=== PATIENT | female | born 1975 | race Caucasian/White ===

== ENCOUNTER 2020-02-23 23:24 | Emergency (ER) | payer SELFPAY ==
--- NOTE | 2020-02-23 23:32 | ED_ITS ---
Entered by Julisa Sanchez, acting as scribe for HPI - Headache General: Chief Complaint: Headache Stated Complaint: headache/dizzy/n Time Seen by Provider: 02/23/20 23:30 Source: patient Mode of arrival: ambulatory Limitations: no limitations History of Present Illness: HPI Narrative: 44 yo f came to the er pov for headache, dizzy and nausea. Pt said that it started in her right eye with some blurring. Pt said that 2 years ago she thought that she was having a stroke she was having the same symptoms as she is now but she is not having any drooping like she did 2 years ago. They told her that it was a migraine that was causing those symptoms. She is rating her pain at a 12/10 right now. MD elicited complaint: headache Onset (ago): day(s) (today) Onset description: suddenly Location: temporal and occipital Severity: moderate Pain scale (0-10): 12 Quality & Timing: throbbing and sharp Exacerbating factors: light Relieving factors: dark room Context: occurred at rest Associated symptoms: Reports nausea and other (nausea and dizziness ); Deny chest pain, fever(s) or rash Review of Systems General: Reports: other (negative unless marked) Const: Denies: fever, chills, body aches or change in appetite Eyes: Denies: blurry vision or eye discomfort ENMT: Denies: throat pain or dental pain Card: Denies: chest pain Resp: Denies: shortness of breath GI: Reports: nausea : Denies: painful urination Musc: Denies: neck pain or back pain Skin/Breast: Denies: rash Neuro: Reports: headache (migraine) Psych: Denies: depression Fidel/Lymph: Denies: easy bruising All/Imm: Denies: hives PFSH ED PFSH: Social History Smoking and tobacco status: never smoked Physical Exam Const: COMMON NORMALS: no apparent distress, oriented x3 and healthy appearing HENMT: COMMON NORMALS: normocephalic and head/scalp atraumatic HEAD & SCALP: normocephalic and atraumatic Eye: COMMON NORMALS: PERRL and EOMs intact bilaterally PUPIL: Yes PERRL Neck/C-Spine: COMMON NORMALS: full ROM and supple Chest: COMMONS NORMALS: inspection of chest normal and palpation of chest normal Resp: COMMON NORMALS: normal respiratory effort, no retractions, no use of accessory muscles and clear to auscultation bilaterally AUSCULTATION: clear to auscultation bilaterally Cardio: COMMON NORMALS: regular rate, regular rhythm and no murmurs RATE: regular rate RHYTHM: regular rhythm GI: COMMON NORMALS: normal to inspection, nondistended, normoactive bowel sounds, soft to palpation, non-tender and no masses PALPATION: Yes soft Extremity: COMMON NORMALS: normal to inspection and full ROM Neuro: COMMON NORMALS: oriented x3, moves all extremities and no focal motor deficits Psych: COMMON NORMALS: mental status grossly normal, thought process normal and cooperative THOUGHT PROCESS: normal thought process Skin: COMMON NORMALS: no rashes or lesions noted and no wounds GENERAL SKIN EXAM: no rashes or lesions noted Course Vital Signs: Vital signs: Vital Signs Pulse Rate 85 02/24/20 00:45 Respiratory Rate 16 02/24/20 00:45 Blood Pressure 106/85 02/24/20 00:45 Pulse Oximetry 96 02/24/20 00:45 MDM - Headache MDM Narrative: Medical decision making narrative: Larissa presents with a headache consistent with migraine headache. It feels like her previous headaches she has no signs of stroke or subarachnoid hemorrhage. Patient's headache is resolved after Reglan along with her other symptoms. Patient is stable for discharge and is to follow-up with primary care doctor in 3 to 5 days return if worsening. Discharge Plan Discharge Patient Disposition: Home, Self-Care Clinical Impression: Headache Qualifiers: Headache type: unspecified Headache chronicity pattern: acute headache Intractability: not intractable Qualified Code(s): R51 - Headache Condition: Stable Prescriptions: No Action No Known Home Medications RF: 0 Discharge Orders: Discharge Order (Routine); Ordered 02/24/20 Ordered By: Rosio Oscar Referrals: Brenden Barbosa FNP [Primary Care Provider] - Discharge Diet: Advance as tolerated Discharge Activity: Resume usual activity Patient Instructions: Acute Headache (ED) Coding Level of Care Code ED Childbirth And Infant Care Teacher for Chg Fwd The documentation recorded by the Daniel rice Stephanie Lyn, accurately reflects the service I personally performed and the decisions made by Dayne melara Korby, MD Feb 23, 2020 23:24
[2020-02-23 23:40] VITALS: BP 191/115; PULSE 88; RESP 18; O2SAT 97; BMI 36.0
[2020-02-24] MEDS: diphenhydrAMINE 50 mg/mL SDV 1mL IVP (00:30)
--- NOTE | 2020-02-24 00:39 | PC.NURSE ---
Patient states she has a history of migraines, patient states she was feeling nauseated, feeling hot, and her right eye was blurry. Patient states she is hurting on the left side of her face and head.
[2020-02-24] MEDS: ketorolac 30 mg/mL INJ 15 MG IVP (00:40)
[2020-02-24 00:45] VITALS: BP 106/85; PULSE 85; RESP 16; O2SAT 96
[2020-02-24] MEDS: metoclopramide 5 mg/mL SDV 2 mL 10 MG IVP (00:45)
[2020-02-24 01:19] VITALS: BP 125/64; PULSE 83; RESP 15; O2SAT 97
[2020-02-24 01:27] VITALS: BP 129/92; PULSE 73; RESP 16; O2SAT 96
== END 2020-02-24 01:29 | disposition home or self-care (01) ==
PROVIDERS: Emergency Provider Emergency Medicine; PCP Nurse Practitioner Family
DX: R51 Headache (principal)
CPT/HCPCS: 12345; 96374; 96375; 99282; 99283; J1200; J1885; J2765

== ENCOUNTER 2021-02-15 21:20 | Emergency (ER) | payer SELFPAY ==
[2021-02-15 21:23] VITALS: BP 121/76; PULSE 91; RESP 18; TEMP 36.5; O2SAT 97; BMI 36.0
--- NOTE | 2021-02-15 22:07 | W.ED.BACK ---
HPI - Back Pain/Injury General: Chief Complaint: Back Pain/Injury Stated Complaint: back pain, numbness left leg Time Seen by Provider: 02/15/21 21:38 History of Present Illness: HPI Narrative: Patient is a 45-year-old female comes to the ED with lower back pain and pain shooting down into left leg. Patient says this is been going on for approximately a week now and states that it got worse in the last couple days because she had been watching her grandkids. Patient says she has a history of lower back pain with with pain rating down into left leg. She rates her current pain an 8 out of 10. She describes it as sharp burning sensation down her leg. Denies any bladder or bowel incontinence or pelvic anesthesia. Associated symptoms: Deny abdominal pain, chills, dysuria, fatigue, fever(s), hematuria, nausea or vomiting Review of Systems Const: Denies: fever(s), chills or fatigue Eyes: Denies: change in vision or eye discomfort ENMT: Denies: throat pain, odynophagia, nasal discharge or nasal congestion Card: Denies: chest pain, palpitations, edema, swelling of feet/ankles, dyspnea on exertion or orthopnea Resp: Denies: dyspnea, productive cough or non-productive cough GI: Denies: abdominal pain, nausea, vomiting, diarrhea, constipation or hematochezia : Denies: flank pain, dysuria or hematuria Musc: Reports: back pain; Denies: neck pain or extremity swelling Skin/Breast: Denies: rash or new lesions Neuro: Denies: headache(s), numbness in extremities or weakness in extremities PFS ED PFSH: Social History Smoking and tobacco status: never smoked Physical Exam Const: COMMON NORMALS: no acute distress, patient oriented x3 and alert GENERAL APPEARANCE: cooperative and comfortable NUTRITIONAL APPEARANCE: overweight HENMT: COMMON NORMALS: normocephalic HEAD & SCALP: normocephalic MOUTH: Normal oral and palatal mucosa present THROAT: posterior oropharynx normal and uvula midline Neck/C-Spine: COMMON NORMALS: supple GENERAL: Yes normal visual inspection Resp: COMMON NORMALS: normal respiratory effort, No retractions, No use of accessory muscles and clear to auscultation bilaterally AUSCULTATION: clear to auscultation bilaterally Cardio: COMMON NORMALS: regular rate, regular rhythm, S1 normal heart sound present, S2 normal heart sound present, No gallops present (Cardio), No clicks present (Cardio), No murmurs present (Cardio) and Peripheral pulses 2+ throughout RATE: regular rate RHYTHM: regular rhythm HEART SOUNDS: S1 normal heart sound present and S2 normal heart sound present PERIPHERAL PULSES: Peripheral pulses 2+ throughout GI: COMMON NORMALS: Normal to inspection, nondistended, normoactive bowel sounds present, Soft to palpation, non-tender and no masses PALPATION: Yes Soft to palpation : COMMON NORMALS: Yes no CVA tenderness BLADDER/KIDNEY EXAM: Yes no CVA tenderness Back/Pelvis: COMMON NORMALS: no CVA tenderness LUMBAR SPINE/LOWER BACK: Yes pain with ROM, Yes paraspinal muscle tenderness Lumbar paraspinal muscle tenderness: left and Yes straight leg raise positive left Extremity: COMMON NORMALS: normal to inspection Neuro: COMMON NORMALS: patient oriented x3 and moves all extremities SENSORIUM/ORIENTATION: Yes alert Skin: GENERAL SKIN EXAM: dry skin Course Vital Signs: Vital signs: Vital Signs Temperature 97.7 F 02/15/21 21:23 Pulse Rate 91 02/15/21 21:23 Respiratory Rate 18 02/15/21 22:40 Blood Pressure 121/76 02/15/21 21:23 Pulse Oximetry 99 02/15/21 22:40 MDM - Back Pain/Injury MDM Narrative: Medical decision making narrative: Patient is a 45-year-old female comes to the ED with lower back pain that radiates down to the left leg. Patient has a history of similar low back pain. Denies any acute injury or trauma. Denies cauda equina symptoms. Patient was given a dose of Dilaudid while here in the ED to help with pain and Solu-Medrol. She was then diagnosed with lumbar radiculopathy and discharged home with a prescription for Medrol Dosepak and methocarbamol. Return to ED precautions given. Follow-up with PCP in 7 to 10 days for reevaluation. Patient understood agree with plan. Discharge Plan Discharge Patient Disposition: Home Clinical Impression: Lumbar radiculopathy Condition: Stable Prescriptions: New Medrol (Tulio) 4 mg tablets,dose pack See Rx Instructions .ROUTE .COMPLEX Qty: 21 RF: 0 methocarbamol 750 mg tablet 750 mg PO Q8H Qty: 20 RF: 0 No Action No Known Home Medications RF: 0 Discharge Orders: Discharge ED (Routine); Ordered 02/15/21 Ordered By: Izaiah Medel Referrals: Brenden Barbosa FNP [Primary Care Provider] - Discharge Diet: Regular Discharge Activity: Increase activity as tolerated Patient Instructions: Lumbar Radiculopathy (ED) Activity Restrictions/Additional Instructions: Follow-up with medical provider as directed in 7-10 days. Take medications as prescribed. Apply cold pack on lower back and stretch lower back daily. Methocarbamol is a muscle relaxer and can cause some drowsiness so use at night before bed. Return to the ER or your medical provider if condition worsens. Please read and understand discharge instructions. If any questions, please ask. Coding Level of Care Code ED Merchandise Adjustment Clerk for Saydag Fwd Exam Comprehensive
[2021-02-15 22:33] VITALS: RESP 18; O2SAT 99
[2021-02-15 22:40] VITALS: RESP 18; O2SAT 99
== END 2021-02-15 22:41 | disposition home or self-care (01) ==
PROVIDERS: Emergency Provider Physician Assistant; PCP Nurse Practitioner Family
DX: M54.16 Radiculopathy, lumbar region (principal)
CPT/HCPCS: 96372; 99283; J2930

== ENCOUNTER 2021-02-26 13:50 | Emergency (ER) | payer SELFPAY ==
[2021-02-26 13:54] VITALS: BP 135/98; PULSE 73; RESP 18; TEMP 36.6; O2SAT 98; BMI 36.0
[2021-02-26 14:03] VITALS: BP 132/95; PULSE 84; RESP 18; O2SAT 98
--- NOTE | 2021-02-26 14:14 | ED_ITS ---
HPI - Back Pain/Injury General: Chief Complaint: Back Pain/Injury Stated Complaint: BACK PAIN Time Seen by Provider: 02/26/21 13:54 History of Present Illness: HPI Narrative: Patient is a 45-year-old female comes to the ED with lower back pain. Patient was seen here in the ED on February 15 for same complaint. Patient says she has low back pain that then radiates down into left leg. Patient states that the steroids that she took did help with her pain and symptoms. Denies any injury or trauma to cause acute pain. She says when she stopped taking the steroids her pain came back. Patient does not have a primary care physician and would like a referral to one. Associated symptoms: Deny abdominal pain, chills, dysuria, fatigue, fever(s), hematuria, nausea or vomiting Review of Systems Const: Denies: fever(s), chills or fatigue Eyes: Denies: change in vision or eye discomfort ENMT: Denies: throat pain, odynophagia, nasal discharge or nasal congestion Card: Denies: chest pain, palpitations, edema, swelling of feet/ankles, dyspnea on exertion or orthopnea Resp: Denies: dyspnea, productive cough or non-productive cough GI: Denies: abdominal pain, nausea, vomiting, diarrhea, constipation or hematochezia : Denies: flank pain, dysuria or hematuria Musc: Reports: back pain; Denies: neck pain or extremity swelling Skin/Breast: Denies: rash or new lesions Neuro: Denies: headache(s), numbness in extremities or weakness in extremities PFS ED PFSH: Social History Smoking and tobacco status: never smoked Physical Exam Const: COMMON NORMALS: no acute distress, patient oriented x3 and alert GENERAL APPEARANCE: cooperative and comfortable HENMT: COMMON NORMALS: normocephalic HEAD & SCALP: normocephalic MOUTH: Normal oral and palatal mucosa present THROAT: posterior oropharynx normal and uvula midline Neck/C-Spine: COMMON NORMALS: supple GENERAL: Yes normal visual inspection Resp: COMMON NORMALS: normal respiratory effort, No retractions, No use of acc essory muscles and clear to auscultation bilaterally AUSCULTATION: clear to auscultation bilaterally Cardio: COMMON NORMALS: regular rate, regular rhythm, S1 normal heart sound present, S2 normal heart sound present, No gallops present (Cardio), No clicks present (Cardio), No murmurs present (Cardio) and Peripheral pulses 2+ throughout RATE: regular rate RHYTHM: regular rhythm HEART SOUNDS: S1 normal heart sound present and S2 normal heart sound present PERIPHERAL PULSES: Peripheral pulses 2+ throughout GI: COMMON NORMALS: Normal to inspection, nondistended, normoactive bowel sounds present, Soft to palpation, non-tender and no masses PALPATION: Yes Soft to palpation : COMMON NORMALS: Yes no CVA tenderness BLADDER/KIDNEY EXAM: Yes no CVA tenderness Back/Pelvis: COMMON NORMALS: no CVA tenderness LUMBAR SPINE/LOWER BACK: Yes pain with ROM, Yes paraspinal muscle tenderness Lumbar paraspinal muscle tenderness: bilateral Bilateral lumbar paraspinal muscle tenderness: L4 and L5 and Yes straight leg raise positive left Extremity: COMMON NORMALS: normal to inspection Neuro: COMMON NORMALS: patient oriented x3 and moves all extremities SENSORIUM/ORIENTATION: Yes alert Skin: GENERAL SKIN EXAM: dry skin Course Vital Signs: Vital signs: Vital Signs Temperature 97.9 F 02/26/21 13:54 Pulse Rate 84 02/26/21 14:03 Respiratory Rate 16 02/26/21 14:31 Blood Pressure 132/95 02/26/21 14:03 Pulse Oximetry 98 02/26/21 14:03 MDM - Back Pain/Injury MDM Narrative: Medical decision making narrative: Patient is a 45-year-old female comes to the ED with lower back pain. she was seen here for same complaint on February 15. symptoms improved with steroid, but once steroid course was finished pain radiating down the left leg returned. pt said the methocarbamol didn't seem to work well. she denies any injury or trauma. pt was discharged with lumbar radiculopathy and sent home with a prescription fro cyclybenzaprine and medrol dose tulio. I also placed an order with case management for pt to get pcp referral to establish care. rest, ice and stretch lower back daily. return to ED precautions given. pt understood and agree with plan. Discharge Plan Discharge Patient Disposition: Home Clinical Impression: Lumbar radiculopathy Condition: Stable Prescriptions: New prednisone 20 mg tablet 20 mg PO TID 5 Days Qty: 15 RF: 0 cyclobenzaprine 5 mg tablet 5 mg PO TID PRN (Reason: muscle spasm) Qty: 30 RF: 0 No Action No Known Home Medications RF: 0 Medrol (Tulio) 4 mg tablets,dose pack See Rx Instructions .ROUTE .COMPLEX Qty: 21 RF: 0 methocarbamol 750 mg tablet 750 mg PO Q8H Qty: 20 RF: 0 Discharge Orders: Discharge ED (Routine); Ordered 02/26/21 Ordered By: Izaiah Medel Referrals: Brenden Barbosa FNP [Primary Care Provider] - Discharge Diet: Regular Discharge Activity: Increase activity as tolerated Patient Instructions: Lumbar Radiculopathy (ED) Activity Restrictions/Additional Instructions: Follow-up with medical provider as directed. Case management contacted External days set up appointment with PCP. Take medications as prescribed. Return to the ER or your medical provider if condition worsens. Please read and understand discharge instructions. If any questions, please ask. Coding Level of Care Code ED Toll Ticket Clerk for Nicole Fwd Exam Comprehensive
[2021-02-26 14:31] VITALS: RESP 16
[2021-02-26] MEDS: oxyCODONE-APAP 5-325 mg Tablet 1 TAB PO (14:31)
[2021-02-26] MEDS: dexamethasone 10 mg/mL INJ IM (14:34)
--- NOTE | 2021-03-01 13:24 | DCPLANNER ---
manager non profit had message to speak with patient about getting established with a primary care physician. manager non profit called phone number [phone], unable to speak with patient at this time, a voicemail was left for patient to return shoe caser phone call.
== END 2021-02-26 14:37 | disposition home or self-care (01) ==
LOC: ER 14:24
PROVIDERS: Emergency Provider Physician Assistant; PCP Nurse Practitioner Family
DX: M54.16 Radiculopathy, lumbar region (principal)
CPT/HCPCS: 96372; 99283; J1100

== ENCOUNTER 2021-04-18 16:57 | Emergency (ER) | payer SELFPAY ==
[2021-04-18 16:58] VITALS: BP 154/103; PULSE 96; RESP 18; TEMP 37.1; O2SAT 96; BMI 36.0
--- NOTE | 2021-04-18 17:09 | ED_ITS ---
HPI - Back Pain/Injury General: Chief Complaint: Back Pain/Injury Stated Complaint: BACK LEG PAIN Time Seen by Provider: 04/18/21 17:07 History of Present Illness: HPI Narrative: Patient is a 45-year-old female comes to the ED with back pain. Patient says she injured her lower back 3 months ago after picking up her grandchildren. She reports still having some pain radiating down into left leg. Her pain came back after she did some lifting around the house and moved some furniture. Patient said she would like to have a referral to a PCP. Denies any pelvic anesthesia, bladder or bowel incontinence or weakness to lower extremities. Associated symptoms: Deny abdominal pain, chills, dysuria, fatigue, fever(s), hematuria, nausea or vomiting Review of Systems Const: Denies: fever(s), chills or fatigue Eyes: Denies: change in vision or eye discomfort ENMT: Denies: throat pain, odynophagia, nasal discharge or nasal congestion Card: Denies: chest pain, palpitations, edema, swelling of feet/ankles, dyspnea on exertion or orthopnea Resp: Denies: dyspnea, productive cough or non-productive cough GI: Denies: abdominal pain, nausea, vomiting, diarrhea, constipation or hematochezia : Denies: flank pain, dysuria or hematuria Musc: Reports: back pain (pain radiating down left leg); Denies: neck pain or extremity swelling Skin/Breast: Denies: rash or new lesions Neuro: Denies: headache(s), numbness in extremities or weakness in extremities PFS ED PFSH: Social History Smoking and tobacco status: never smoked Physical Exam Const: COMMON NORMALS: no acute distress, patient oriented x3 and alert GENERAL APPEARANCE: cooperative and comfortable NUTRITIONAL APPEARANCE: overweight HENMT: COMMON NORMALS: normocephalic HEAD & SCALP: normocephalic MOUTH: Normal oral and palatal mucosa present THROAT: posterior oropharynx normal and uvula midline Eye: COMMON NORMALS: Equal, round and reactive pupils present PUPIL: Yes Equal, round and reactive pupils present Neck/C-Spine: COMMON NORMALS: supple GENERAL: Yes normal visual inspection Resp: COMMON NORMALS: normal respiratory effort, No retractions, No use of accessory muscles and clear to auscultation bilaterally AUSCULTATION: clear to auscultation bilaterally Cardio: COMMON NORMALS: regular rate, regular rhythm, S1 normal heart sound present, S2 normal heart sound present, No gallops present (Cardio), No clicks present (Cardio), No murmurs present (Cardio) and Peripheral pulses 2+ throughout RATE: regular rate RHYTHM: regular rhythm HEART SOUNDS: S1 normal heart sound present and S2 normal heart sound present PERIPHERAL PULSES: Peripheral pulses 2+ throughout GI: COMMON NORMALS: Normal to inspection, nondistended, normoactive bowel sounds present, Soft to palpation, non-tender and no masses INSPECTION: Yes central obesity PALPATION: Yes Soft to palpation : COMMON NORMALS: Yes no CVA tenderness BLADDER/KIDNEY EXAM: Yes no CVA tenderness Back/Pelvis: COMMON NORMALS: no CVA tenderness LUMBAR SPINE/LOWER BACK: No lumbar spinal tenderness, No paraspinal muscle tenderness and Yes straight leg raise positive left Extremity: COMMON NORMALS: normal to inspection Neuro: COMMON NORMALS: patient oriented x3 and moves all extremities SENSORIUM/ORIENTATION: Yes alert Skin: GENERAL SKIN EXAM: dry skin Course Vital Signs: Vital signs: Vital Signs Temperature 98.7 F 04/18/21 16:58 Pulse Rate 96 04/18/21 16:58 Respiratory Rate 18 04/18/21 16:58 Blood Pressure 154/103 04/18/21 16:58 Pulse Oximetry 96 04/18/21 16:58 MDM - Back Pain/Injury MDM Narrative: Medical decision making narrative: Patient is a 45-year-old lower back pain that radiates down into left leg. Patient has been dealing with this for the past 3 months. She reaggravated pain after trying to lift some furniture around the house. Denies any cauda equina symptoms. Straight leg raise positive for left lower extremity. Patient was wanting to get established with a primary care physician so I placed an order with case management to be referred to a PCP. Patient was given a dose of Toradol and Decadron while here in the ED. Patient diagnosed with sciatica and was discharged home with a Medrol Dosepak and Flexeril. I told patient that catalytic case operator be contacting her in the next several days set up appoint with the PCP. Return to ED precautions given. Patient understood agree with plan. Discharge Plan Discharge Patient Disposition: Home Clinical Impression: Sciatica Qualifiers: Laterality: left Qualified Code(s): M54.32 - Sciatica, left side Condition: Stable Prescriptions: New Medrol (Tulio) 4 mg tablets,dose pack See Rx Instructions .ROUTE .COMPLEX Qty: 21 RF: 0 cyclobenzaprine 10 mg tablet 10 mg PO BID PRN (Reason: muscle spasm) Qty: 20 RF: 0 No Action No Known Home Medications RF: 0 Discharge Orders: Discharge ED (Routine); Ordered 04/18/21 Ordered By: Izaiah Medel Discharge Diet: Regular Discharge Activity: Increase activity as tolerated Patient Instructions: Sciatica (ED) Activity Restrictions/Additional Instructions: Follow-up with medical provider as directed. Case management should be contacting you in the next several days to set up an appointment with a primary care physician. Take medications as prescribed. Cyclobenzaprine is a muscle relaxer and can cause some drowsiness so take at night before bed. Apply cold pack and/or heat on painful area and stretch lower back and legs daily. Return to the ER or your medical provider if condition worsens. Please read and understand discharge instructions. Thank you for choosing [facility] for your healthcare needs today. Please realize this is an emergency room and that we are providing you with a medical screening exam and this may not be complete and all inclusive of all the testing and or work up that you may need to determine your ailment or severity of your illness. It is very important that you follow up as instructed or that you return to the Emergency Department should you have concerns or if your condition changes or worsens in any way. Coding Level of Care Code ED [employer] Agent for Nicole Sood Exam Comprehensive
[2021-04-18] MEDS: dexamethasone 10 mg/mL INJ IM (17:58)
[2021-04-18] MEDS: ketorolac 60 mg/2 mL INJ IM (17:59)
--- NOTE | 2021-04-20 14:31 | DCPLANNER ---
manager consumer insights had message to speak with patient about getting established with a primary care physician. manager consumer insights spoke with patient, she stated that she did need help in getting established with a primary care physician. manager consumer insights called [facility], spoke with Cherelle, gave clinic patients information. A follow up appointment was scheduled for Saturday, April 24, 2021 at 10:[address] Shah. manager consumer insights called patient and gave patient the appointment information.
--- NOTE | 2021-05-17 15:33 | DCPLANNER ---
Patient had a follow up appointment scheduled for 04.24.[address] Shah for primary care - patient did not attend appointment.
== END 2021-04-18 18:14 | disposition home or self-care (01) ==
PROVIDERS: Emergency Provider Physician Assistant
DX: M54.32 Sciatica, left side (principal)
CPT/HCPCS: 96372; 99283; J1100; J1885

== ENCOUNTER 2021-06-01 17:01 | Emergency (ER) | payer SELFPAY ==
[2021-06-01 17:13] VITALS: BP 138/99; PULSE 74; RESP 18; TEMP 36.6; O2SAT 96; BMI 36.0
--- NOTE | 2021-06-01 17:25 | W.ED.EXTPRO ---
HPI - Extremity Problem General: Chief complaint: Extremity Injury, Upper Stated complaint: Left Thumb Cut Time Seen by Provider: 06/01/21 17:24 Source: patient Mode of arrival: ambulatory Limitations: no limitations History of Present Illness: HPI Narrative: Peeling potatoes patient slipped and cut thumb laterally with reid, no skin left for repair of wound. MD Complaint: extremity pain and extremity swelling Location: right Severity scale (1-10): 5 Review of Systems General: Reports: 10 or more systems reviewed and unremarkable except in HPI and below PFSH ED PFSH: Social History Smoking and tobacco status: never smoked Physical Exam Const: COMMON NORMALS: no acute distress, average body habitus, patient oriented x3, no limitations, healthy appearing, alert and well nourished HENMT: COMMON NORMALS: normocephalic and atraumatic HEAD & SCALP: normocephalic and atraumatic FACE & SINUS: normal facial exam Eye: COMMON NORMALS: Equal, round and reactive pupils present and EOMs intact bilaterally PUPIL: Yes Equal, round and reactive pupils present Neck/C-Spine: COMMON NORMALS: full ROM, no lymphadenopathy and no JVD Resp: COMMON NORMALS: normal respiratory effort, No retractions, No use of accessory muscles, clear to auscultation bilaterally and percussion normal EFFORT & INSPECTION: Yes able to speak in complete sentences AUSCULTATION: clear to auscultation bilaterally PERCUSSION: percussion normal Cardio: COMMON NORMALS: no JVD, regular rate, regular rhythm, S1 normal heart sound present and S2 normal heart sound present RATE: regular rate RHYTHM: regular rhythm HEART SOUNDS: S1 normal heart sound present and S2 normal heart sound present GI: COMMON NORMALS: Normal to inspection, nondistended, normoactive bowel sounds present Extremity: LEFT UPPER EXTREMITY: Yes hand & digits (Unremarkable except as noted.) Left hand and digits: Yes inspection (Sheer loss of skin superficial to lateral thumb. Bleeding controlled), Yes palpation, Yes ROM, Yes neurovascular exam and Yes tendon exam Neuro: COMMON NORMALS: patient oriented x3 SENSORIUM/ORIENTATION: Yes alert Psych: COMMON NORMALS: mental status grossly normal Skin: TRAUMA: abrasion (Sheer injury to thumb L hand.) Course ED course: Neurologically intact, bleeding controlled with dressing irrigated with saline, surgicel applied to better control bleeding. Re-applied dressing and wrapped with co-ban. Will administer Tetanus booster at this time. Follow up as needed with PCP. Vital Signs: Vital signs: Vital Signs Temperature 97.8 F 06/01/21 17:13 Pulse Rate 74 06/01/21 17:13 Respiratory Rate 18 06/01/21 17:13 Blood Pressure 138/99 06/01/21 17:13 Pulse Oximetry 96 06/01/21 17:13 Discharge Plan Discharge Condition: Stable Prescriptions: No Action No Known Home Medications RF: 0 Medrol (Tulio) 4 mg tablets,dose pack See Rx Instructions .ROUTE .COMPLEX Qty: 21 RF: 0 cyclobenzaprine 10 mg tablet 10 mg PO BID PRN (Reason: muscle spasm) Qty: 20 RF: 0 Discharge Orders: Discharge ED (Routine); Ordered 06/01/21 Ordered By: Nasima Aguilar Discharge Diet: Usual diet Discharge Activity: Resume usual activity Patient Instructions: Diphtheria Tetanus and Pertussis Vaccination (ED), Wound Care (General) Activity Restrictions/Additional Instructions: Elevate extremity, rest avoid strenuous use. Apply ice as needed for pain and swelling. Coding Level of Care Code ED Payroll Machine Operator for Nicole Sood
[2021-06-01 17:54] VITALS: RESP 18; TEMP 36.6; O2SAT 96
[2021-06-01] MEDS: tetanus-diphtheria tox (adult) 0.5 mL SDV IM (17:54)
== END 2021-06-01 17:55 | disposition home or self-care (01) ==
PROVIDERS: Emergency Provider Nurse Practitioner Family
DX: S61.012A Laceration without foreign body of left thumb without damage to nail, initial encounter (principal); W26.0XXA Contact with knife, initial encounter; Z23 Encounter for immunization
CPT/HCPCS: 90471; 90714; 99282

== ENCOUNTER 2021-06-04 12:39 | Emergency (ER) | payer SELFPAY ==
[2021-06-04 12:54] VITALS: BP 142/90; PULSE 71; RESP 16; TEMP 36.8; O2SAT 97; BMI 36.0
--- NOTE | 2021-06-04 13:06 | W.ED.EXTPRO ---
HPI - Extremity Problem General: Chief complaint: Extremity Injury, Upper Stated complaint: PROBLEM W/L THUMB AFTER HER INJURY FRIDAY Time Seen by Provider: 06/04/21 12:57 History of Present Illness: HPI Narrative: Patient states that clotting agent is stuck to her thumb and she cannot get it off. Complaint: extremity pain Onset (ago): day(s) Pain Consistency: colicky Location: left and upper extremity Severity scale (1-10): 1 Quality: aching Associated symptoms: Deny fever(s) Review of Systems Const: Denies: fever(s) or chills Skin/Breast: Reports: other (Clotting agent stuck to avulsion left thumb) Psych: Denies: anxiety PFSH ED PFSH: Social History Smoking and tobacco status: never smoked Physical Exam Const: COMMON NORMALS: no acute distress Psych: COMMON NORMALS: mental status grossly normal Skin: OTHER: Left thumb avulsion has clotting agent that stuck to the avulsion itself with a 4 x 4 stuck to clotting agent patient does not want to pull that off. Due to discomfort will go ahead and soak in Betadine/peroxide Course Vital Signs: Vital signs: Vital Signs Temperature 98.3 F 06/04/21 12:54 Pulse Rate 71 06/04/21 12:54 Respiratory Rate 16 06/04/21 12:54 Blood Pressure 142/90 06/04/21 12:54 Pulse Oximetry 97 06/04/21 12:54 MDM - Extremity (Nontraumatic) MDM Narrative: Medical decision making narrative: Was able to remove clotting agent without any difficulty wound did not bleed Band-Aid was applied. Discharge Plan Discharge Patient Disposition: Home Clinical Impression: Avulsion of skin Condition: Stable Prescriptions: No Action No Known Home Medications RF: 0 Medrol (Tulio) 4 mg tablets,dose pack See Rx Instructions .ROUTE .COMPLEX Qty: 21 RF: 0 cyclobenzaprine 10 mg tablet 10 mg PO BID PRN (Reason: muscle spasm) Qty: 20 RF: 0 Discharge Orders: Discharge ED (Routine); Ordered 06/04/21 Ordered By: Tomasz Méndez Discharge Diet: Usual diet Discharge Activity: Resume usual activity Activity Restrictions/Additional Instructions: Keep Band-Aid on area as needed Coding Level of Care Code ED Game Technician for Chg Fwd Exam Expanded Problem Focused
== END 2021-06-04 13:47 | disposition home or self-care (01) ==
PROVIDERS: Emergency Provider Nurse Practitioner Family
DX: S61.002A Unspecified open wound of left thumb without damage to nail, initial encounter (principal); X58.XXXA Exposure to other specified factors, initial encounter
CPT/HCPCS: 99281

== ENCOUNTER 2021-09-03 21:50 | Emergency (ER) | payer SELFPAY ==
[2021-09-03 22:35] VITALS: BP 154/96; PULSE 92; RESP 18; TEMP 36.8; O2SAT 97; BMI 38.3
--- NOTE | 2021-09-04 00:12 | CTR_ITS ---
PROCEDURE INFORMATION: Exam: CT Abdomen And Pelvis With Contrast Exam date and time: 09/04/2021 12:12 AM Age: 45 years old Clinical indication: Abdominal pain; Localized; Right lower quadrant (rlq); Prior surgery; Surgery type: Tubal ligation; Patient HX: Rlq pain; Additional info: Rule out appendicitis TECHNIQUE: Imaging protocol: Computed tomography of the abdomen and pelvis with contrast. Radiation optimization: All CT scans at this facility use at least one of these dose optimization techniques: automated exposure control; mA and/or kV adjustment per patient size (includes targeted exams where dose is matched to clinical indication); or iterative reconstruction. Contrast material: OMNI 300; Contrast volume: 95 ml; Contrast route: INTRAVENOUS (IV); COMPARISON: CT abdomen pelvis w con* [id number] 06/19/2018 11:47 PM RADIATION DOSE METRICS: Total DLP (mGy-cm): 1839.81 FINDINGS: Lower thorax: Mild patchy atelectasis at bilateral lung bases. Liver: Unremarkable. Gallbladder and bile ducts: Unremarkable. Pancreas: Unremarkable. Spleen: Unremarkable. Adrenal glands: Unremarkable. Kidneys and ureters: The kidneys are unremarkable. No renal stones identified. No hydronephrosis on either side. Stomach and bowel: No bowel obstruction identified. No diverticulitis identified. Appendix: A normal-appearing appendix is seen in the right lower quadrant. Intraperitoneal space: No free intraperitoneal air identified. No free intraperitoneal fluid identified. Vasculature: No abdominal aortic aneurysm. Lymph nodes: Unremarkable. Urinary bladder: Unremarkable as visualized. Reproductive: The uterus is unremarkable. There is a 4.5 cm x 3.9 cm probable right ovarian cyst on series 2, image 73. This is new since the prior study. Bones/joints: Unremarkable. No acute fracture. Soft tissues: Unremarkable. CT/CT abdomen pelvis w con* [id number] IMPRESSION: 1. Findings consistent with right ovarian cyst. 2. Negative for appendicitis. Radiation Dose CTDIVOL = (mGy): DLP = 1839.81 (mGy-cm)
--- NOTE | 2021-09-04 00:20 | ED_ITS ---
Documented by User: Serg Rg MD 09/07/21 20:07 HPI - General Adult General: Chief complaint: Abdominal Pain Stated complaint: abd pain Time Seen by Provider: 09/03/21 23:54 History of Present Illness: HPI narrative: Patient is a 45-year-old female with history of tubal ligation presenting to the emergency room with severe right lower quadrant abdominal pain x2 days. Patient says that begins having hypogastric pain that now moved to the right lower quadrant for last 2 days. Patient ports nausea/vomiting is concerned on her appendix. Patient has decreased p.o. intake. Denies any blood with bowel movement. Denies any melena or hematochezia, new vaginal discharge, and other urinary complaints at this time. Onset:2 days ago Duration:2 days Location:home Severity:moderate Review of Systems Narrative: Constitutional: No fever, no chills. HEENT: No vision changes CV: No chest pain, no palpitations PULM: no cough, no dyspnea. GI: +RLQ abd pain, +N/V, -D : No dysuria MSKEL: No muscle pain SKIN: No new rashes, no lesions. NEURO: No headache, no focal weakness. HEME: No visible bruises PSYCH: Normal mood PFSH ED PFSH: Social History Smoking and tobacco status: never smoked Female Reproductive History: Date of last menstrual period: 02/22/21 Physical Exam Narrative: EXAM NARRATIVE: Head: Atraumatic Eyes: PERRL, conjunctiva without injection ENT: Mucous membrane moist NECK: Supple, ROM intact LUNGS: LCTAB, no crackles/rhonchi CV: RRR ABDOMEN: Soft, +moderate tenderness RLQ focal TTP. NO guarding rebound, guarding, rigidity. No CVA tenderness to percussion. Neg Hemphill/Neg, no suprabupic tenderness to palpation. EXTREMITY: Normal ROM SKIN: No rash or erythema NEURO: Awake and alert, no focal motor deficits PSYCH: Normal mood and affect Course Vital Signs: Vital signs: Vital Signs Temperature 98.2 F 09/03/21 22:35 Pulse Rate 77 09/04/21 07:15 Respiratory Rate 20 H 09/04/21 07:15 Blood Pressure 139/79 09/04/21 07:15 Pulse Oximetry 100 09/04/21 07:15 MDM - General Adult MDM Narrative: Medical decision making narrative: 45-year-old female with a history of tubal ligation presenting to the emergency room with 2 days of right lower quadrant abdominal pain. On exam, patient has focal tenderness palpation. Vitals stable otherwise. 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 Work-up: CBC, CMP, lipase, UA, beta hCG, CT abdomen pelvis WBC of 10.7. CT is negative for appendicitis. Pending US evaluation. Lab Data: Labs: Lab Results 09/04/21 09/04/21 09/04/21 00:30 00:45 00:45 WBC 10.7 10^3/uL H 10 ^3/uL (4.0-10.0) RBC 5.15 10^6/uL 10^6 /uL (4.1-5.3) Hgb 14.9 g/dL g/dL (11.5-15.3) Hct 46.0 % % (37.0-47.0) MCV 89.3 fl fl (81-99) MCH 28.9 pg pg (28.0-34.0) MCHC 32.4 g/dL g/dL (30.0-36.0) RDW 12.7 % % (12.1-15.1) Plt Count 341 10^3/cmm 10^3 /cmm (130-400) MPV 9.9 fL fL (7.4-10.4) Neut % (Auto) 61.6 % % Lymph % (Auto) 30.0 % % [facility] % (Auto) 5.9 % % Eos % (Auto) 1.2 % % Baso % (Auto) 0.7 % % Neut # (Auto) 6.61 10^3/uL 10^3 /uL (1.8-7.7) Lymph # (Auto) 3.2 10^3/uL 10^3/ uL (0.8-4.8) [facility] # (Auto) 0.6 10^3/uL 10^3/ uL (0.2-0.9) Eos # (Auto) 0.1 10^3/uL 10^3/ uL (0.0-0.8) Baso # (Auto) 0.1 10^3/uL 10^3/ uL (0.0-0.1) Nucleated RBC % (a uto) 0 % % Nucleated RBCs # 0.0 /100WBC /100W BC PT INR APTT Sodium 138 mmol/L mmol/L (136-145) Potassium 3.7 mmol/L mmol/L (3.5-5.1) Chloride 102 mmol/L mmol/L (98-107) Carbon Dioxide 24 mmol/L mmol/L (22-29) Anion Gap 15.7 (5-19) BUN 14 mg/dL mg/dL (6-20) Creatinine 0.8 mg/dL mg/dL (0.5-0.9) GFR Calculation 77.6 mL/min L mL/ min (90-130) Glucose 91 mg/dL mg/dL (65-115) Calculated Osmolal ity 286 mOsm/kg mOsm/ kg (285-295) Lactate Calcium 9.6 mg/dL mg/dL (8.5-10.5) Total Bilirubin 0.7 mg/dL mg/dL (0.15-1.2) AST 40 U/L H U/L (0-32) ALT 44 U/L H U/L (0-33) Alkaline Phosphata se 73 IU/L IU/L (35-105) Total Protein 7.4 g/dL g/dL (6.6-8.7) Albumin 4.4 g/dL g/dL (3.5-5.2) Globulin 3.0 g/dL g/dL (1.3-4.6) Lipase 21 U/L U/L (13-60) Ser , Leilani i-Qnt Urine Color Yellow (Yellow) Urine Appearance Clear (CLEAR) Urine pH 5 (5-7) Ur Specific Gravit y 1.020 (1.005-1.030) Urine Protein Neg (Negative) Urine Glucose (UA) Norm (Normal) Urine Ketones 1+ H (Negative) Urine Blood Neg (Negative) Urine Nitrate Negative (Negative) Urine Bilirubin Neg (Negative) Urine Urobilinogen Norm mg/dL mg/dL (Negative) Ur Leukocyte Clara ase Negative (Negative) 09/04/21 09/04/21 09/04/21 00:45 00:45 00:45 WBC RBC Hgb Hct MCV MCH MCHC RDW Plt Count MPV Neut % (Auto) Lymph % (Auto) [facility] % (Auto) Eos % (Auto) Baso % (Auto) Neut # (Auto) Lymph # (Auto) [facility] # (Auto) Eos # (Auto) Baso # (Auto) Nucleated RBC % (a uto) Nucleated RBCs # PT 12.80 SECONDS SEC ONDS (12.1-14.9) INR 0.94 (0.8-1.2) APTT 22.4 SECONDS L SE CONDS (23.9-36.7) Sodium Potassium Chloride Carbon Dioxide Anion Gap BUN Creatinine GFR Calculation Glucose Calculated Osmolal ity Lactate 0.9 mmol/L mmol/L (0.5-2.2) Calcium Total Bilirubin AST ALT Alkaline Phosphata se Total Protein Albumin Globulin Lipase Ser , Leilani i-Qnt < 0.50 mIU/mL mIU /mL Urine Color Urine Appearance Urine pH Ur Specific Gravit y Urine Protein Urine Glucose (UA) Urine Ketones Urine Blood Urine Nitrate Urine Bilirubin Urine Urobilinogen Ur Leukocyte Clara ase Imaging Data^: Other Imaging: Radiologist's impression: [id number] [id number] Scan ReportSigned Patient: Laura Crowell #: [id number]: [id number]#:[id number]/Sex: 45 / FADM Date: 09/03/21Loc: ERRoom/Bed:Attending Dr: Ordering Provider/Ordering MD: Serg Rg MD Date of Service: 09/04/21 Procedure(s): CT abdomen pelvis w con* [id number] Accession Number(s): [id number] Report Number: [id number] PROCEDURE INFORMATION: Exam: CT Abdomen And Pelvis With Contrast Exam date and time: 09/04/2021 12:12 AM Age: 45 years old Clinical indication: Abdominal pain; Localized; Right lower quadrant (rlq); Prior surgery; Surgery type: Tubal ligation; Patient HX: Rlq pain; Additional info: Rule out appendicitis TECHNIQUE: Imaging protocol: Computed tomography of the abdomen and pelvis with contrast. Radiation optimization: All CT scans at this facility use at least one of these dose optimization techniques: automated exposure control; mA and/or kV adjustment per patient size (includes targeted exams where dose is matched to clinical indication); or iterative reconstruction. Contrast material: OMNI 300; Contrast volume: 95 ml; Contrast route: INTRAVENOUS (IV); COMPARISON: CT abdomen pelvis w con* [id number] 06/19/2018 11:47 PM RADIATION DOSE METRICS: Total DLP (mGy-cm): 1839.81 FINDINGS: Lower thorax: Mild patchy atelectasis at bilateral lung bases. Liver: Unremarkable. Gallbladder and bile ducts: Unremarkable. Pancreas: Unremarkable. Spleen: Unremarkable. Adrenal glands: Unremarkable. Kidneys and ureters: The kidneys are unremarkable. No renal stones identified. No hydronephrosis on either side. Stomach and bowel: No bowel obstruction identified. No diverticulitis identified. Appendix: A normal-appearing appendix is seen in the right lower quadrant. Intraperitoneal space: No free intraperitoneal air identified. No free intraperitoneal fluid identified. Vasculature: No abdominal aortic aneurysm. Lymph nodes: Unremarkable. Urinary bladder: Unremarkable as visualized. Reproductive: The uterus is unremarkable. There is a 4.5 cm x 3.9 cm probable right ovarian cyst on series 2, image 73. This is new since the prior study. Bones/joints: Unremarkable. No acute fracture. Soft tissues: Unremarkable. CT/CT abdomen pelvis w con* [id number] IMPRESSION: 1. Findings consistent with right ovarian cyst. 2. Negative for appendicitis. Radiation Dose CTDIVOL = (mGy): DLP = 1839.81 (mGy-cm) Dictated By:Ahmet Herediaigned By:Ahmet Heredia Date/Time:09/04/21 0442DD/ 0012 Discharge Plan Discharge Patient Disposition: Home Clinical Impression: Cyst of right ovary Condition: Stable Prescriptions: New Zofran 4 mg tablet 4 mg PO Q6H PRN (Reason: nausea and vomiting) Qty: 10 RF: 0 Percocet 5-325 mg tablet 1 tab PO Q6H PRN (Reason: pain) Qty: 7 RF: 0 No Action Medrol (Tulio) 4 mg tablets,dose pack See Rx Instructions .ROUTE .COMPLEX Qty: 21 RF: 0 cyclobenzaprine 10 mg tablet 10 mg PO BID PRN (Reason: muscle spasm) Qty: 20 RF: 0 Discharge Orders: Discharge ED (Routine); Ordered 09/04/21 Ordered By: Chris Gonzalez Discharge Diet: Usual diet Discharge Activity: Increase activity as tolerated Patient Instructions: Abdominal Pain (ED), Opioid Safety Activity Restrictions/Additional Instructions: Case management will contact you to arrange for follow-up with a primary care physician. Coding Level of Care Code ED Wire Harness Assembler for Nicole Fwvinod Documented by User: Chris Gonzalez DO 09/04/21 07:03 HPI - General Adult General: Chief complaint: Abdominal Pain Stated complaint: abd pain Time Seen by Provider: 09/03/21 23:54 PFSH ED PFSH: Social History Smoking and tobacco status: never smoked Course Vital Signs: Vital signs: Vital Signs Temperature 98.2 F 09/03/21 22:35 Pulse Rate 77 09/04/21 07:15 Respiratory Rate 20 H 09/04/21 07:15 Blood Pressure 139/79 09/04/21 07:15 Pulse Oximetry 100 09/04/21 07:15 MDM - General Adult MDM Narrative: Medical decision making narrative: Care assumed at change of shift. On exam patient still complaining of right lower quadrant and suprapubic pain. Labs reviewed very slight bump in transaminases but otherwise unremarkable CT shows right ovarian cyst confirmed by ultrasound no good flow to the ovary. The serum qualitative hCG was negative. Appendix is normal on the CT. Reviewed labs and imaging as found on the chart. Provided discharge patient home. She has multiple narcotic allergies listed on her chart when I talked to her it sounds more like side effects however she tolerated a wide range of medications in the emergency room she did get a little nauseous from Dilaudid but otherwise tolerated well gave her a few Percocet tablet. Will have case management get her established with a primary care return if has further problems. Lab Data: Labs: Lab Results 09/04/21 09/04/21 09/04/21 00:30 00:45 00:45 WBC 10.7 10^3/uL H 10 ^3/uL (4.0-10.0) RBC 5.15 10^6/uL 10^6 /uL (4.1-5.3) Hgb 14.9 g/dL g/dL (11.5-15.3) Hct 46.0 % % (37.0-47.0) MCV 89.3 fl fl (81-99) MCH 28.9 pg pg (28.0-34.0) MCHC 32.4 g/dL g/dL (30.0-36.0) RDW 12.7 % % (12.1-15.1) Plt Count 341 10^3/cmm 10^3 /cmm (130-400) MPV 9.9 fL fL (7.4-10.4) Neut % (Auto) 61.6 % % Lymph % (Auto) 30.0 % % [facility] % (Auto) 5.9 % % Eos % (Auto) 1.2 % % Baso % (Auto) 0.7 % % Neut # (Auto) 6.61 10^3/uL 10^3 /uL (1.8-7.7) Lymph # (Auto) 3.2 10^3/uL 10^3/ uL (0.8-4.8) [facility] # (Auto) 0.6 10^3/uL 10^3/ uL (0.2-0.9) Eos # (Auto) 0.1 10^3/uL 10^3/ uL (0.0-0.8) Baso # (Auto) 0.1 10^3/uL 10^3/ uL (0.0-0.1) Nucleated RBC % (a uto) 0 % % Nucleated RBCs # 0.0 /100WBC /100W BC PT INR APTT Sodium 138 mmol/L mmol/L (136-145) Potassium 3.7 mmol/L mmol/L (3.5-5.1) Chloride 102 mmol/L mmol/L (98-107) Carbon Dioxide 24 mmol/L mmol/L (22-29) Anion Gap 15.7 (5-19) BUN 14 mg/dL mg/dL (6-20) Creatinine 0.8 mg/dL mg/dL (0.5-0.9) GFR Calculation 77.6 mL/min L mL/ min (90-130) Glucose 91 mg/dL mg/dL (65-115) Calculated Osmolal ity 286 mOsm/kg mOsm/ kg (285-295) Lactate Calcium 9.6 mg/dL mg/dL (8.5-10.5) Total Bilirubin 0.7 mg/dL mg/dL (0.15-1.2) AST 40 U/L H U/L (0-32) ALT 44 U/L H U/L (0-33) Alkaline Phosphata se 73 IU/L IU/L (35-105) Total Protein 7.4 g/dL g/dL (6.6-8.7) Albumin 4.4 g/dL g/dL (3.5-5.2) Globulin 3.0 g/dL g/dL (1.3-4.6) Lipase 21 U/L U/L (13-60) Ser , Leilani i-Qnt Urine Color Yellow (Yellow) Urine Appearance Clear (CLEAR) Urine pH 5 (5-7) Ur Specific Gravit y 1.020 (1.005-1.030) Urine Protein Neg (Negative) Urine Glucose (UA) Norm (Normal) Urine Ketones 1+ H (Negative) Urine Blood Neg (Negative) Urine Nitrate Negative (Negative) Urine Bilirubin Neg (Negative) Urine Urobilinogen Norm mg/dL mg/dL (Negative) Ur Leukocyte Clara ase Negative (Negative) 09/04/21 09/04/21 09/04/21 00:45 00:45 00:45 WBC RBC Hgb Hct MCV MCH MCHC RDW Plt Count MPV Neut % (Auto) Lymph % (Auto) [facility] % (Auto) Eos % (Auto) Baso % (Auto) Neut # (Auto) Lymph # (Auto) [facility] # (Auto) Eos # (Auto) Baso # (Auto) Nucleated RBC % (a uto) Nucleated RBCs # PT 12.80 SECONDS SEC ONDS (12.1-14.9) INR 0.94 (0.8-1.2) APTT 22.4 SECONDS L SE CONDS (23.9-36.7) Sodium Potassium Chloride Carbon Dioxide Anion Gap BUN Creatinine GFR Calculation Glucose Calculated Osmolal ity Lactate 0.9 mmol/L mmol/L (0.5-2.2) Calcium Total Bilirubin AST ALT Alkaline Phosphata se Total Protein Albumin Globulin Lipase Ser , Leilani i-Qnt < 0.50 mIU/mL mIU /mL Urine Color Urine Appearance Urine pH Ur Specific Gravit y Urine Protein Urine Glucose (UA) Urine Ketones Urine Blood Urine Nitrate Urine Bilirubin Urine Urobilinogen Ur Leukocyte Clara ase Discharge Plan Discharge Patient Disposition: Home Clinical Impression: Cyst of right ovary Condition: Stable Prescriptions: New Zofran 4 mg tablet 4 mg PO Q6H PRN (Reason: nausea and vomiting) Qty: 10 RF: 0 Percocet 5-325 mg tablet 1 tab PO Q6H PRN (Reason: pain) Qty: 7 RF: 0 No Action Medrol (Tulio) 4 mg tablets,dose pack See Rx Instructions .ROUTE .COMPLEX Qty: 21 RF: 0 cyclobenzaprine 10 mg tablet 10 mg PO BID PRN (Reason: muscle spasm) Qty: 20 RF: 0 Discharge Orders: Discharge ED (Routine); Ordered 09/04/21 Ordered By: Chris Gonzalez Discharge Diet: Usual diet Discharge Activity: Increase activity as tolerated Patient Instructions: Abdominal Pain (ED), Opioid Safety Activity Restrictions/Additional Instructions: Case management will contact you to arrange for follow-up with a primary care physician. Coding Level of Care Code ED Wire Harness Assembler for Nicole Sood
[2021-09-04 00:44] LABS: Add Urine Microscopic? NO; Charge for UA Resulting for Rev
[2021-09-04 00:47] LABS: Bilirubin Urine Neg (Negative); Blood Urine Neg (Negative); Glucose Urine UA Norm (Normal); Ketones Urine 1+ (Negative); Leukocyte Esterase Urine Negative (Negative); Nitrate Urine Negative (Negative); Protein Urine Neg (Negative); Urine Appearance Clear (CLEAR); Urine Color Yellow (Yellow); Urobilinogen Urine Norm (Negative); pH Urine 5 (5-7)
[2021-09-04] MEDS: sodium chloride 0.9% 1,000 ML 999 ML IV (00:51)
[2021-09-04] MEDS: ondansetron 2 mg/ML SDV 2 mL 4 MG IVP (00:51)
[2021-09-04] MEDS: HYDROmorphone 1 mg/mL INJ 1 mL 0.5 MG IVP (00:52)
[2021-09-04 01:00] LABS: Basophils # 0.1 10^3/uL (0.0-0.1); Basophils % 0.7 %; Eosinophils # 0.1 10^3/uL (0.0-0.8); Eosinophils % 1.2 %; Hemoglobin 14.9 g/dL (11.5-15.3); Lymphocytes # 3.2 10^3/uL (0.8-4.8); Mean Corpuscular HGB Conc 32.4 g/dL (30.0-36.0); Mean Corpuscular Hemoglobin 28.9 pg (28.0-34.0); Mean Corpuscular Volume 89.3 fl (81-99); Mean Platelet Volume 9.9 fL (7.4-10.4); Monocytes # 0.6 10^3/uL (0.2-0.9); Monocytes % 5.9 %; Neutrophils # 6.61 10^3/uL (1.8-7.7); Neutrophils % 61.6 %; Nucleated Red Blood Cells % 0 %; Platelet Count 341 10^3/cmm (130-400); Red Blood Count 5.15 10^6/uL (4.1-5.3); Red Cell Distribution Width 12.7 % (12.1-15.1); White Blood Count 10.7 10^3/uL (4.0-10.0)
[2021-09-04 01:13] LABS: INR 0.94 (0.8-1.2)
[2021-09-04 01:14] LABS: Partial Thromboplastin Time 22.4 SECONDS (23.9-36.7)
[2021-09-04 01:21] LABS: Alanine Aminotransferase 44 U/L (0-33); Albumin Level 4.4 g/dL (3.5-5.2); Alkaline Phosphatase 73 IU/L (35-105); Anion Gap 15.7 (5-19); Aspartate Amino Transferase 40 U/L (0-32); Blood Urea Nitrogen 14 mg/dL (6-20); Calcium 9.6 mg/dL (8.5-10.5); Carbon Dioxide 24 mmol/L (22-29); Chloride 102 mmol/L (98-107); Glomerular Filtration Rate 77.6 mL/min (90-130); Glucose 91 mg/dL (65-115); Lipase 21 U/L (13-60); Osmolality Calculated 286 mOsm/kg (285-295); Potassium 3.7 mmol/L (3.5-5.1); Sodium 138 mmol/L (136-145); Total Bilirubin 0.7 mg/dL (0.15-1.2); Total Protein 7.4 g/dL (6.6-8.7)
[2021-09-04 01:22] LABS: Lactate (Lactic Acid level) 0.9 mmol/L (0.5-2.2)
[2021-09-04 01:46] LABS: HCG Quantitative < 0.50 mIU/mL
[2021-09-04] MEDS: iohexol 300 mg/mL 100 mL Btl IV (02:39)
[2021-09-04 04:40] VITALS: RESP 20
[2021-09-04] MEDS: fentaNYL 50 mcg/mL INJ 2mL IVP ×3 (04:40→07:01)
--- NOTE | 2021-09-04 04:48 | US_ITS ---
WS: [id number] TRANSVAGINAL PELVIC ULTRASOUND HISTORY: rule out ovarian torsion COMPARISON: 09/04/2021 CT. Uterus: 8.2 cm x 3.9 cm x 3.9 cm. Normal size anteverted uterus. Endometrium: 0.8 cm. Normal. Right ovary: 5.4 cm x 4.6 cm x 3.8 cm. Mildly enlarged ovary secondary to an associated RIGHT ovarian cyst. RIGHT ovarian cyst is mildly complex measuring 4.3 x 3.6 x 3.3 cm. Within the adjacent ovary t here is normal flow. No evidence for torsion. Left ovary: LEFT ovary is not visualized by ultrasound. No free fluid. US/US transvaginal [id number] IMPRESSION: Mildly complex RIGHT ovarian cyst measures 4.3 x 3.6 x 3.3 cm. No ovarian torsi on.
[2021-09-04 07:15] VITALS: BP 139/79; PULSE 77; RESP 20; O2SAT 100
--- NOTE | 2021-09-04 12:44 | DCPLANNER ---
studio operations manager had message to speak with patient about getting established with a primary care physician and scheduling a follow up appointment. studio operations manager called phone number [phone], unable to speak with patient or leave a voicemail due to patient not accepting phone calls at this time.
== END 2021-09-04 07:15 | disposition home or self-care (01) ==
PROVIDERS: Emergency Medicine; Emergency Provider Family Medicine
DX: N83.201 Unspecified ovarian cyst, right side (principal)
CPT/HCPCS: 74177; 76830; 80053; 81003; 83605; 83690; 84702; 85025; 85610; 85730; 96361; 96374; 96375; 99283; J1170; J2405; J3010; J7030; Q9967

== ENCOUNTER 2021-11-28 21:17 | Emergency (ER) | payer SELFPAY ==
[2021-11-28 21:34] VITALS: BP 117/83; PULSE 88; RESP 20; TEMP 36.7; O2SAT 97; BMI 38.3
--- NOTE | 2021-11-28 21:48 | XRR_ITS ---
PROCEDURE INFORMATION: Exam: XR Left Foot Exam date and time: 11/28/2021 9:48 PM Age: 46 years old Clinical indication: Pain; Foot; Left; Additional info: Injury TECHNIQUE: Imaging protocol: XR Left foot. Views: 3 or more views. COMPARISON: No relevant prior studies available. FINDINGS: Bones/joints: Normal. Soft tissues: Normal. XR/XR foot LT min 3V* [id number] IMPRESSION: No acute findings.
--- NOTE | 2021-11-28 21:48 | XRR_ITS ---
PROCEDURE INFORMATION: Exam: XR Left Ankle Exam date and time: 11/28/2021 9:48 PM Age: 46 years old Clinical indication: Pain; Ankle; Left; Additional info: Injury TECHNIQUE: Imaging protocol: XR Left ankle. Views: 3 or more views. COMPARISON: No relevant prior studies available. FINDINGS: Bones/joints: Normal. Soft tissues: Normal. XR/XR ankle LT min 3V* [id number] IMPRESSION: No acute findings.
--- NOTE | 2021-11-28 22:44 | ED_ITS ---
HPI - Extremity Problem General: Chief complaint: Extremity Injury, Lower Stated complaint: L foot injury Time Seen by Provider: 11/28/21 22:40 History of Present Illness: HPI Narrative: Patient is a 46-year-old female comes to the ED with left foot and ankle pain. Injury occurred earlier today. Patient says she was moving some furniture today but does not remember any acute injury or trauma to cause left foot pain. A couple hours prior to arrival she said she started having pain in the middle of her left foot and it hurts with any weightbearing. She rates the pain currently a 7 out of 10. She has full range of motion in ankle. Resting and elevating left foot helps with symptoms. Associated symptoms: Deny chest pain, fever(s) or rash Review of Systems Const: Denies: fever(s), chills or fatigue Eyes: Denies: change in vision or eye discomfort ENMT: Denies: throat pain, odynophagia, nasal discharge or nasal congestion Card: Denies: chest pain, palpitations, edema, swelling of feet/ankles, dyspnea on exertion or orthopnea Resp: Denies: dyspnea, productive cough or non-productive cough GI: Denies: abdominal pain, nausea, vomiting, diarrhea, constipation or hematochezia : Denies: flank pain, dysuria or hematuria Musc: Reports: extremity pain (left foot and ankle); Denies: neck pain, back pain or extremity swelling Skin/Breast: Denies: rash or new lesions Neuro: Denies: headache(s), numbness in extremities or weakness in extremities [facility], [facility] PFSH: Social History Smoking and tobacco status: never smoked Female Reproductive History: Date of last menstrual period: 02/22/21 Physical Exam Const: COMMON NORMALS: no acute distress, patient oriented x3, healthy appearing and alert GENERAL APPEARANCE: cooperative and comfortable HENMT: COMMON NORMALS: normocephalic HEAD & SCALP: normocephalic MOUTH: Normal oral and palatal mucosa present THROAT: posterior oropharynx normal and uvula midline Neck/C-Spine: COMMON NORMALS: supple GENERAL: Yes normal visual inspection Resp: COMMON NORMALS: normal respiratory effort, No retractions, No use of accessory muscles and clear to auscultation bilaterally AUSCULTATION: clear to auscultation bilaterally Cardio: COMMON NORMALS: regular rate, regular rhythm, S1 normal heart sound present, S2 normal heart sound present, No gallops present (Cardio), No clicks present (Cardio), No murmurs present (Cardio) and Peripheral pulses 2+ throughout RATE: regular rate RHYTHM: regular rhythm HEART SOUNDS: S1 normal heart sound present and S2 normal heart sound present PERIPHERAL P ULSES: Peripheral pulses 2+ throughout GI: COMMON NORMALS: Normal to inspection, nondistended, normoactive bowel sounds present, Soft to palpation, non-tender and no masses PALPATION: Yes Soft to palpation : COMMON NORMALS: Yes no CVA tenderness BLADDER/KIDNEY EXAM: Yes no CVA tenderness Back/Pelvis: COMMON NORMALS: no CVA tenderness Extremity: COMMON NORMALS: normal to inspection Neuro: COMMON NORMALS: patient oriented x3 and moves all extremities SENSORIUM/ORIENTATION: Yes alert Skin: GENERAL SKIN EXAM: dry skin Course Vital Signs: Vital signs: Vital Signs Temperature 98.1 F 11/28/21 21:34 Pulse Rate 88 11/28/21 21:34 Respiratory Rate 20 H 11/28/21 21:34 Blood Pressure 117/83 11/28/21 21:34 Pulse Oximetry 97 11/28/21 21:34 MDM - Extremity (Nontraumatic) MDM Narrative: Medical decision making narrative: Patient is a 46-year-old female comes to the ED with left foot pain. Patient says she was moving some furniture today and afterwards she started feeling some pain in her left foot. No acute injury or trauma noted. She has pain around the midfoot region with ambulation. Vital stable. Exam is benign. X-ray of left foot and left ankle show no acute fractures or findings. Patient was given some crutches and told to use them for the next 3 days to limit weightbearing and allow for healing. Rest, ice and elevate left foot. Follow-up with PCP in 7 to 10 days reevaluation. Return ED precautions given. Patient understood and agreed with plan. Imaging Data^: Xray Ortho: Attestation: I personally reviewed and interpreted this imaging study as follows: Radiologist's impression: [address] [place] [address] XRay Report Signed Patient: Linda Crowelldi Parsons Unit #: [id number] : 1975 Age/Sex: 46 / F ADM Date: 11/28/21 Loc: ER Room/Bed: Attending Dr: Ordering Provider/Ordering MD: Rosio Oscar MD Date of Service: 11/28/21 Procedure(s): XR ankle LT min 3V* 68427 Accession Number(s): [id number] Report Number: [id number] PROCEDURE INFORMATION: Exam: XR Left Ankle Exam date and time: 11/28/2021 9:48 PM Age: 46 years old Clinical indication: Pain; Ankle; Left; Additional info: Injury TECHNIQUE: Imaging protocol: XR Left ankle. Views: 3 or more views. COMPARISON: No relevant prior studies available. FINDINGS: Bones/joints: Normal. Soft tissues: Normal. XR/XR ankle LT min 3V* [id number] IMPRESSION: No acute findings. Dictated By: Dillan Mishra MD Signed By: Dillan Mishra MD Signed Date/Time: 11/28/212252 DD/ [address] [address] XRay Report Signed Patient: Laura Crowell Unit #: [id number] : 1975 Age/Sex: 46 / F ADM Date: 11/28/21 Loc: ER Room/Bed: Attending Dr: Ordering Provider/Ordering MD: Rosio Oscar MD Date of Service: 11/28/21 Procedure(s): XR foot LT min 3V* 66693 Accession Number(s): [id number] Report Number: [id number] PROCEDURE INFORMATION: Exam: XR Left Foot Exam date and time: 11/28/2021 9:48 PM Age: 46 years old Clinical indication: Pain; Foot; Left; Additional info: Injury TECHNIQUE: Imaging protocol: XR Left foot. Views: 3 or more views. COMPARISON: No relevant prior studies available. FINDINGS: Bones/joints: Normal. Soft tissues: Normal. XR/XR foot LT min 3V* [id number] IMPRESSION: No acute findings. Dictated By: Dillan Mishra MD Signed By: Dillan Mishra MD Signed Date/Time: 11/28/212252 DD/ 47 Discharge Plan Discharge Patient Disposition: Home Clinical Impression: Acute pain of left foot Condition: Stable Prescriptions: No Action Medrol (Tulio) 4 mg tablets,dose pack See Rx Instructions .ROUTE .COMPLEX Qty: 21 RF: 0 cyclobenzaprine 10 mg tablet 10 mg PO BID PRN (Reason: muscle spasm) Qty: 20 RF: 0 Zofran 4 mg tablet 4 mg PO Q6H PRN (Reason: nausea and vomiting) Qty: 10 RF: 0 Percocet 5-325 mg tablet 1 tab PO Q6H PRN (Reason: pain) Qty: 7 RF: 0 Discharge Orders: Discharge ED (Routine); Ordered 11/28/21 Ordered By: Izaiah Medel Discharge Diet: Regular Discharge Activity: Limit activity as instructed and Use walker/crutches as instructed Activity Restrictions/Additional Instructions: Follow-up with medical provider as directed in 7 to 10 days reevaluation. Use crutches to help with ambulation for the next 3 days to limit weightbearing on left foot. Then slowly advance weightbearing as tolerated. Rest, ice and elevate left foot as well. Take [id number] ibuprofen or Tylenol for pain. Return to the ER or your medical provider if condition worsens. Please read and understand discharge instructions. Thank you for choosing [facility] for your healthcare needs today. Please realize this is an emergency room and that we are providing you with a medical screening exam and this may not be complete and all inclusive of all the testing and or work up that you may need to determine your ailment or severity of your illness. It is very important that you follow up as instructed or that you return to the Emergency Department should you have concerns or if your condition changes or worsens in any way. Coding Level of Care Code ED Garment Sewer Hand for Nicole Sood Exam Comprehensive
== END 2021-11-28 23:24 | disposition home or self-care (01) ==
PROVIDERS: Emergency Provider Physician Assistant
DX: M79.672 Pain in left foot (principal)
CPT/HCPCS: 73610; 73630; 99282